=== PATIENT | male | born 1975 | race Caucasian/White ===

== ENCOUNTER 2016-11-29 16:59 | Emergency (ER) | payer BC, OTHER ==
[2016-11-29 17:06] VITALS: BP 158/97; RESP 18; TEMP 97.9
[2016-11-29] MEDS ORDERED: IPRATROPIUM-ALBUTEROL 3 ML NEB INHALATION STA (17:47)
--- NOTE | 2016-11-29 17:54 | ED ---
URI HPI - General Chief Complaint: Upper Respiratory Infection Stated Complaint: Diff breathing Time Seen by Provider: 11/29/16 17:22 Source: patient Mode of arrival: wheelchair Limitations: no limitations - History of Present Illness Initial Comments: Patient is a 32-year-old male with chief complaint of 1 month of cough and left- sided rib pain. Patient reports the pain is worse with coughing. Patient states he is a smoker. He is trying to quit. Patient denies any fever or chills. He denies any other upper respiratory symptoms including sore throat or ear pain or sinus congestion. He denies any abdominal pain or fever or chills or nausea or vomiting. Patient reports that the pain in the coughing keep some of the pain. Patient denies any previous history of pneumonia. Patient denies any recent fever, chills, shortness of breath, chest pain, back pain, abdominal pain, nausea vomiting, numbness or tingling, dysuria or hematuria, constipation or diarrhea, headaches or visual changes, or any other current symptoms - Related Data Home Medications Medication Instructions Recorded Confirmed Escitalopram Oxalate [Lexapro] 10 mg PO QAM 05/28/16 06/11/16 Atorvastatin [Lipitor] 10 mg PO DAILY 06/09/16 06/11/16 Previous Rx's Medication Instructions Recorded Aspirin 325 mg PO DAILY #30 tab 06/11/16 HYDROcodone/APAP 7.5-325MG [[place] 1 each PO Q6HR PRN #30 tab 06/11/16 7.5] Nicotine 21Mg/24Hr Patch [Habitrol] 1 each TRANSDERM DAILY #30 patch 06/11/16 Azithromycin [Zithromax Z-pack] 250 mg PO DIRECTED #6 tab 11/29/16 Promethaz-Cod 6.25-10 mg/5 ml 5 ml PO Q6HR PRN #60 ml 11/29/16 [Phenergan with Codeine] methylPREDNISolone Dose Pack 4 mg PO DIRECTED #21 package 11/29/16 [Medrol Dose Pack] Allergies Allergy/AdvReac Type Severity Reaction Status Date / Time No Known Allergies Allergy Verified 11/29/16 17:04 Review of Systems ROS Statement: Those systems with pertinent positive or pertinent negative responses have been documented in the HPI. ROS Other: All systems not noted in ROS Statement are negative. Past Medical History Past Medical History: Hyperlipidemia Additional Past Medical History / Comment(s): fx rt ankle, USING CRUTCHES History of Any Multi-Drug Resistant Organisms: None Reported Past Surgical History: Appendectomy, Tonsillectomy Additional Past Surgical History / Comment(s): 06/10/16 ORIF R ankle. Other surgical hx: carpal tunnel, mass right foot, Past Anesthesia/Blood Transfusion Reactions: Previous Problems w/ Anesthesia Additional Past Anesthesia/Blood Transfusion Reaction / Comment(s): woke up during surgery in past Past Psychological History: Depression Additional Psychological History / Comment(s): Pt resides in 2 locations. One with his girlfriend and another with his 2 children ages 10 and 12. He is normally independent. Smoking Status: Current every day smoker Past Alcohol Use History: Rare Additional Past Alcohol Use History / Comment(s): has smoked since teen, less than 1ppd Past Drug Use History: None Reported - Past Family History Father Family Medical History: No Reported History Additional Family Medical History / Comment(s): Father is healthy and is 57 yrs. old. Mother Family Medical History: No Reported History Additional Family Medical History / Comment(s): Mother is healthy and is 58 yrs old. General Exam - General Exam Comments Initial Comments: is a 40-year-old male. He does not appear to be in any acute distress. Limitations: no limitations General appearance: alert, in no apparent distress Head exam: Present: atraumatic, normocephalic, normal inspection Eye exam: Present: normal appearance, PERRL, EOMI. Absent: scleral icterus, conjunctival injection, periorbital swelling ENT exam: Present: normal exam Neck exam: Present: normal inspection. Absent: tenderness, meningismus, lymphadenopathy Respiratory exam: Present: normal lung sounds bilaterally. Absent: respiratory distress, wheezes, rales, rhonchi, stridor Cardiovascular Exam: Present: regular rate, normal rhythm, normal heart sounds. Absent: systolic murmur, diastolic murmur, rubs, gallop, clicks GI/Abdominal exam: Present: soft, normal bowel sounds. Absent: distended, tenderness, guarding, rebound, rigid Extremities exam: Present: normal inspection, full ROM, normal capillary refill. Absent: tenderness, pedal edema, joint swelling, calf tenderness Back exam: Present: normal inspection Neurological exam: Present: alert, oriented X3, CN II-XII intact Psychiatric exam: Present: normal affect, normal mood Skin exam: Present: warm, dry, intact, normal color. Absent: rash Course Vital Signs 11/29/16 11/29/16 11/29/16 17:04 17:59 18:09 Temperature 97.9 F Pulse Rate 85 80 80 Respiratory 18 Rate Blood Pressure 158/97 O2 Sat by Pulse 97 Oximetry Medical Decision Making - Medical Decision Making is a well-appearing 32-year-old male with chief complaint of cough and left rib pain with coughing for approximately one month. Patient ports of the cough will occasionally be productive. He denies any fever or chills. Chest x- ray was reviewed. Patient was given a DuoNeb treatment in the [facility]. Patient reports he does have breathing treatment machine at home. Patient was on azithromycin and Medrol Dosepak for bronchitis. Patient advised to return to the [facility] if any alarming signs or symptoms occur. I did advise patient to follow- up with primary care provider. Return parameters were discussed. Disposition Clinical Impression: Bronchitis Disposition: HOME SELF-CARE Condition: Good Instructions: Upper Respiratory Infection in Children (ED) Additional Instructions: Continue to use breathing treatments as directed. Patient instructed to follow- up with primary care provider as directed. Continue to complete antibiotic and steroid prescription. Use cough syrup as directed. Prescriptions: Azithromycin [Zithromax Z-pack] 250 mg PO DIRECTED #6 tab Promethaz-Cod 6.25-10 mg/5 ml [Phenergan with Codeine] 5 ml PO Q6HR PRN #60 ml PRN Reason: Cough methylPREDNISolone Dose Pack [Medrol Dose Pack] 4 mg PO DIRECTED #21 package Referrals: Boris Vazquez DO [Primary Care Provider] - 1-2 days Time of Disposition: 17:50
[2016-11-29 18:02] VITALS: PULSE 80
--- NOTE | 2016-11-29 18:11 | XR ---
EXAMINATION TYPE: XR chest 2V DATE OF EXAM: 11/29/2016 5:42 PM COMPARISON: Prior chest x-ray October HISTORY: Cough, tingling in hands and feet TECHNIQUE: Frontal and lateral views of the chest are obtained. FINDINGS: There is no focal air space opacity, pleural effusion, or pneumothorax seen. The cardiac silhouette size is within normal limits. The osseous structures are intact. IMPRESSION: No acute cardiopulmonary process.
== END 2016-11-29 18:20 | disposition home or self-care (01) ==
LOC: EC 16:59
DX: J40 Bronchitis, not specified as acute or chronic (principal); E78.5 Hyperlipidemia, unspecified; F17.200 Nicotine dependence, unspecified, uncomplicated; Z79.82 Long term (current) use of aspirin; Z79.899 Other long term (current) drug therapy
CPT/HCPCS: 71020; 99283

== ENCOUNTER 2018-07-18 11:01 | Day surgery (SDC) | payer BC, OTHER ==
[2018-07-17 13:17] VITALS: BMI 33.0
[~2018-07-18 11:01] MED LIST: LACTATED RINGERS 1,000 ML IV SCH; LIDOCAINE 1% 20 ML VIAL (10MG/ML) FOR IV START INTRADERMA PRN
[2018-07-18] MEDS ORDERED: LIDOCAINE 1% INJ 10MG/ML (20 ML MDV) ONE (11:56)
[2018-07-18] MEDS ORDERED: PROPOFOL 10 MG/ML 20 ML VIAL IV ONE (11:56)
[2018-07-18 11:59] VITALS: RESP 18; TEMP 97
--- NOTE | 2018-07-18 11:59 | P.GSHP ---
History of Present Illness H&P Date: 07/18/18 Chief Complaint: GI bleed Is a 42-year-old male with history of GI bleed. Patient presents today for EGD and colonoscopy. 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 Other surgical hx: benja carpal tunnel Past Anesthesia/Blood Transfusion Reactions: Previous Problems w/ Anesthesia Additional Past Anesthesia/Blood Transfusion Reaction / Comment(s): woke up during surgery in past ,claustrophobic Smoking Status: Current some day smoker - Past Family History Father Family Medical History: No Reported History Additional Family Medical History / Comment(s): Father is healthy and is 57 yrs. old. Mother Family Medical History: No Reported History Additional Family Medical History / Comment(s): Mother is healthy and is 58 yrs old. Medications and Allergies Home Medications Medication Instructions Recorded Confirmed Type Rivaroxaban [Xarelto] 20 mg PO DAILY 07/17/18 07/17/18 History Varenicline [Chantix Continuing 1 mg PO DAILY 07/17/18 07/18/18 History Pack] amLODIPine BESYLATE [Norvasc] 5 mg PO HS 07/17/18 07/18/18 History Allergies Allergy/AdvReac Type Severity Reaction Status Date / Time No Known Allergies Allergy Verified 07/18/18 11:33 Surgical - Exam - General well developed, no distress - Eyes PERRL - ENT normal pinna - Neck no masses - Respiratory normal expansion - Cardiovascular Rhythm: regular - Abdomen Abdomen: soft, non tender Assessment and Plan Assessment: Family. We'll perform EGD and colonoscopy
[2018-07-18 12:49] VITALS: BP 135/91; PULSE 62
--- NOTE | 2018-07-18 14:31 | P.OP ---
Date of Procedure: 07/18/18 Preoperative Diagnosis: GI bleed Postoperative Diagnosis: Antral gastritis Diverticulosis Procedure(s) Performed: EGD Colonoscopy Anesthesia: MAC Surgeon: Danilo Hamilton Pathology: other (Antrum) Condition: stable Disposition: PACU Description of Procedure: Patient's placed on the endoscopy table in the lateral position. He received IV sedation. The gastroscope placed oropharynx and passed in the esophagus into the stomach. Scope was then placed through the pylorus. The first and second portion of the duodenum appeared normal. Scope summer back the antrum this. Mildly inflamed. A biopsies performed. Scope was then retroflexed and the remainder some appeared normal. The GE junction was at 40 cm. The distal esophagus appeared normal. Esophagus. Normal. Scope was withdrawn. Next digital rectal exam was performed which revealed no abnormalities. The flexible colonoscope was then placed patient anus and passed throughout the entire colon. The ileocecal valve was visually. The cecum, ascending and transverse colon appeared normal. The descending; had mild diverticular changes. The scope was then brought back the rectum and this appeared normal. Scope withdrawn the patient. As no evidence of any bleeding seen.
--- NOTE | 2018-07-20 17:10 | CDI ---
Outpatient Documentation Clarification Form Date: 07/20/18 CDS/Entry Clerk Name: Linette Lambert Phone: If any questions, call Brenda Maurice Motor Transport Inspector at [phone] Patient Name: Elliot Iyer Admit Date: 07/18/18 Discharge Date: 07/18/18 ATTENTION: The [facility] Coding Staff appreciate your assistance in clarifying documentation. Please respond to the clarification below the line at the bottom and electronically sign. The [facility] Coding staff will review the response and follow-up if needed. Please note: Queries are made part of the Legal Health Record. If you have any questions, please contact the Motor Transport Inspector. Dear Dr. Danilo Hamilton, What is the source of the GI bleed? Multiple coding resources, that we are required to follow, state that the physician should identify a source and the cold working supervisor may not assume. ICD-9-CM [facility], Second 2006, Page 13: Question: In the 2004 issue of Coding Clinic, it was advised that "the combination codes describing hemorrhage should not be assigned unless the physician identifies a causal relationship." This information superseded previous advice provided in 1991. If, however, a patient presents with GI bleeding where only one possible source is found, can the cold working supervisor assume a causal relationship between the GI bleeding and the single finding (ulcer, gastritis, diverticulitis, etc.) or must the physician explicitly state that the GI bleeding is due to the single finding? Answer: The cold working supervisor should not assume a causal relationship between gastrointestinal bleeding and a single finding such as a gastric ulcer, gastritis, diverticulitis , etc. The physician must identify the source of the bleeding and link the clinical findings from the colonoscopy or upper endoscopy, since these findings may be unrelated to the bleeding. ICD-9-CM, 2004, Page: 17-18: Question: A patient presents with GI bleeding and undergoes both an EGD with biopsy and colonoscopy. Results reveal multiple findings including gastritis, duodenitis, esophagitis, diverticulosis (of colon), and colon polyp. The physician does not link the GI bleeding with these conditions nor does the physician state that the GI bleeding is not due to these conditions. What is the correct code assignment for these conditions? Answer: Query the physician to determine whether the GI bleeding was caused by any of the endoscopic findings (e.g., gastritis, duodentitis, esophagitis, diverticulosis, and/or polyp). Assign code 578.9, Hemorrhage of gastrointestinal tract, unspecified, as the principal diagnosis, if the physician does not establish a causal relationship between the gastrointestinal bleeding and the multiple findings. Codes 535.50, Unspecified gastritis and gastroduodenitis, without hemorrhage, 535.60, Duodenitis, without hemorrhage, 530.10, Esophagitis, unspecified, 562.10, Diverticulosis of colon (without mention of hemorrhage), and 211.3, Benign neoplasm of other parts of digestive system, Colon, should be assigned as additional diagnoses. The combination codes describing hemorrhage should not be assigned unless the physician identifies a causal relationship. If the documentation provides more specific information and the bleeding is linked to a specific condition, assign the appropriate combination code with bleeding. Assign code 45.16, Esophagogastroduodenoscopy [EGD] with closed biopsy, and code 45.23, Colonoscopy , for the procedures performed. This current information supersedes advice previously published in [facility], Second Quarter 1991, pages 8-9. Thank you for your kind consideration. There was no active GI bleed. The source of previous GI bleed could be gastritis or diverticulosis. I am unable to determine. MTDD
== END 2018-07-18 13:12 | disposition home or self-care (01) ==
LOC: ORWHC2ENDO 11:01
PROVIDERS: ATTEND Surgery
DX: K92.2 Gastrointestinal hemorrhage, unspecified (principal); K29.50 Unspecified chronic gastritis without bleeding; K57.30 Diverticulosis of large intestine without perforation or abscess without bleeding; I10 Essential (primary) hypertension; E78.5 Hyperlipidemia, unspecified; G47.33 Obstructive sleep apnea (adult) (pediatric); Z79.01 Long term (current) use of anticoagulants; Z79.899 Other long term (current) drug therapy; Z87.891 Personal history of nicotine dependence
CPT/HCPCS: 88305; 45378; 43239; J2001; J2704

== ENCOUNTER 2019-08-31 11:58 | Emergency (ER) | payer OTHER ==
[2019-08-31 12:04] VITALS: BP 139/92; PULSE 75; RESP 18; TEMP 98.1
--- NOTE | 2019-08-31 12:25 | ED ---
Lower Extremity Injury HPI - General Chief Complaint: Extremity Injury, Lower Stated Complaint: Leg injury-[facility] Time Seen by Provider: 08/31/19 12:06 Source: patient, RN notes reviewed Mode of arrival: ambulatory Limitations: no limitations - History of Present Illness Initial Comments: This a 43-year-old male presents emergency from chief complaint of right leg pain. 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 He states that he removed the cramps on a trailer over he states he was pushing and felt a pop in his right upper calf region. He has no pain in the mid to lower right leg. Patient states that if he tries to walk he has increased pain. He does admit he's had prior surgery on his right leg secondary to multiple fractures. Patient denies any paresthesias at this time. Patient states that he has no redness or foot swelling denies any foot pain. - Related Data Home Medications Medication Instructions Recorded Confirmed Rivaroxaban [Xarelto] 20 mg PO DAILY 07/17/18 07/17/18 Varenicline [Chantix Continuing 1 mg PO DAILY 07/17/18 07/18/18 Pack] amLODIPine BESYLATE [Norvasc] 5 mg PO HS 07/17/18 07/18/18 Allergies Allergy/AdvReac Type Severity Reaction Status Date / Time No Known Allergies Allergy Verified 08/31/19 12:04 Review of Systems ROS Statement: Those systems with pertinent positive or pertinent negative responses have been documented in the HPI. ROS Other: All systems not noted in ROS Statement are negative. 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 Other surgical hx: benja carpal tunnel Past Anesthesia/Blood Transfusion Reactions: Previous Problems w/ Anesthesia Additional Past Anesthesia/Blood Transfusion Reaction / Comment(s): woke up during surgery in past ,claustrophobic Past Psychological History: Depression Smoking Status: Current some day smoker Past Alcohol Use History: None Reported Past Drug Use History: None Reported - Past Family History Father Family Medical History: No Reported History Additional Family Medical History / Comment(s): Father is healthy and is 57 yrs. old. Mother Family Medical History: No Reported History Additional Family Medical History / Comment(s): Mother is healthy and is 58 yrs old. General Exam General appearance: alert, in no apparent distress Head exam: Present: atraumatic, normocephalic, normal inspection Eye exam: Present: normal appearance, PERRL, EOMI. Absent: scleral icterus, conjunctival injection, periorbital swelling Respiratory exam: Present: normal lung sounds bilaterally. Absent: respiratory distress, wheezes, rales, rhonchi, stridor Cardiovascular Exam: Present: regular rate, normal rhythm, normal heart sounds. Absent: systolic murmur, diastolic murmur, rubs, gallop, clicks Extremities exam: Present: other (Right calf there is moderate tenderness minimal swelling no erythema pedal pulses equal bilaterally full range of motion negative Harley's test) Course Vital Signs 08/31/19 11:59 Temperature 98.1 F Pulse Rate 75 Respiratory 18 Rate Blood Pressure 139/92 O2 Sat by Pulse 95 Oximetry Medical Decision Making - Medical Decision Making X-rays are negative for acute changes are is old hardware noted without any dislodgment. Patient has a gastrocnemius strain. Patient will be placed on crutches, follow up with [facility] patient provided pain medication. Disposition Clinical Impression: Strain of right gastrocnemius muscle Disposition: HOME SELF-CARE Condition: Stable Instructions (If sedation given, give patient instructions): Muscle Strain (ED) Additional Instructions: Please return to the Emergency Department if symptoms worsen or any other concerns. Is patient prescribed a controlled substance at d/c from ED?: No Referrals: Boris Vazquez DO [Primary Care Provider] - 1-2 days Joseph Greenberg DO [Doctor of Osteopathic Medicine] - 1-2 days Time of Disposition: 12:51
--- NOTE | 2019-08-31 12:38 | XR ---
EXAMINATION TYPE: XR tibia fibula RT , 4 VIEWS DATE OF EXAM ORDERED: 08/31/2019 HISTORY: pain. COMPARISON: Previous study dated 05/28/2016. FINDINGS: There has been a previous sideplate and screw fixation of the distal fibula. There is a mi nimal exostosis seen arising from the lateral aspect of the proximal fibular metaphysis. No acute fra cture or dislocation is seen. Incidental note is made of a small Achilles spur. IMPRESSION: 1. NO ACUTE OSSEOUS LESION. 2. EVIDENCE OF OLD TRAUMA TO THE DISTAL RIGHT FIBULA.
[2019-08-31] MEDS ORDERED: ACET/COD 300 MG/30 MG STARTER PACK 6 TAB BTL PO STA (12:51)
== END 2019-08-31 13:10 | disposition home or self-care (01) ==
LOC: EC 11:58
DX: S86.819A Strain of other muscle(s) and tendon(s) at lower leg level, unspecified leg, initial encounter (principal); E78.5 Hyperlipidemia, unspecified; I10 Essential (primary) hypertension; F17.200 Nicotine dependence, unspecified, uncomplicated; Z86.711 Personal history of pulmonary embolism; Z79.01 Long term (current) use of anticoagulants; Z79.899 Other long term (current) drug therapy; W20.8XXA Other cause of strike by thrown, projected or falling object, initial encounter; Y93.89 Activity, other specified; Y92.69 Other specified industrial and construction area as the place of occurrence of the external cause; Y99.0 Civilian activity done for income or pay
CPT/HCPCS: 99283

== ENCOUNTER → 2019-09-17 | Outpatient (CLI) | payer BC, OTHER ==
--- NOTE | 2019-09-17 14:01 | CT ---
EXAMINATION TYPE: CT chest wo con DATE OF EXAM: 09/17/2019 COMPARISON: None HISTORY: Follow up scan per patient. History of enlarged thymus. CT DLP: 440.[address] of the chest was performed with lung and mediastinal window settings submitted. The la ck of contrast limits evaluation of the vascular, mediastinal and parenchymal structures including th e upper abdomen. LUNGS: The lungs are clear and free of infiltrate. No atelectasis. No pulmonary nodule or mass is de tected. No pleural effusion. No CT evidence of interstitial lung disease. MEDIASTINUM/KAREN: There is evidence of thymic hyperplasia. No mass is identified within the mediastin um to suggest thymoma. Thoracic aorta is of normal caliber with limited evaluation given lack of cont rast. The heart is not enlarged. No evidence for mediastinal mass. No lymph nodes greater than 1c m. UPPER ABDOMEN: No significant abnormality is seen. OTHER: No significant other abnormality. IMPRESSION: 1. Thymic hyperplasia noted.
== END | disposition home or self-care (01) ==
LOC: RADCTMAIN 13:17
PROVIDERS: ATTEND Family Medicine
DX: E32.0 Persistent hyperplasia of thymus (principal)
CPT/HCPCS: 71250

== ENCOUNTER 2020-02-26 15:11 | Emergency (ER) | payer BC, OTHER ==
[2020-02-26 15:19] VITALS: RESP 18
--- NOTE | 2020-02-26 15:58 | XR ---
EXAMINATION TYPE: XR chest 2V DATE OF EXAM: 02/26/2020 COMPARISON: 11/29/2016 HISTORY: 45-year-old female with cough TECHNIQUE: PA and lateral views FINDINGS: The cardiomediastinal silhouette, aorta, and pulmonary vasculature are within normal limits. Lungs an d pleural spaces are clear. IMPRESSION: No acute cardiopulmonary process.
[2020-02-26 16:20] LABS: Appearance,Urine Clear (Clear); Bilirubin,Urine Negative (Negative); Blood,Urine Negative (Negative); Color,Urine Yellow; Glucose,Urine (UA) Negative (Negative); Ketones,Urine Negative (Negative); Leukocyte Esterase,Urine Trace (Negative); Mucus,Urine Occasional /hpf; Nitrite,Urine Negative (Negative); Protein,Urine Negative (Negative); RBC,Urine 1 /hpf (0-5); Specific Gravity,Urine 1.017 (1.001-1.035); Urobilinogen,Urine <2.0 mg/dL (<2.0)
[2020-02-26 16:29] LABS: Basophils # (A) 0.1 k/uL (0-0.2); Basophils % (A) 1 %; Eosinophils # (A) 0.2 k/uL (0-0.7); Eosinophils % (A) 2 %; HCT 50.1 % (39.0-53.0); HGB 16.7 gm/dL (13.0-17.5); Lymphocytes # (A) 2.6 k/uL (1.0-4.8); Lymphocytes % (A) 25 %; MCHC 33.3 g/dL (31.0-37.0); MCV 93.2 fL (80.0-100.0); Mean Platelet Volume 7.4; Monocytes # (A) 0.5 k/uL (0-1.0); Monocytes % (A) 5 %; Neutrophils # (A) 6.7 k/uL (1.3-7.7); Neutrophils % (A) 65 %; Platelet Count 241 k/uL (150-450); RBC 5.38 m/uL (4.30-5.90); WBC 10.3 k/uL (3.8-10.6)
[2020-02-26 16:38] LABS: ALT 16 U/L (4-49); AST 31 U/L (17-59); African American GFR (CKD) >90 (>60 ml/min/1.73 sqM); Albumin 4.6 g/dL (3.5-5.0); Alkaline Phosphatase 48 U/L (38-126); Amylase 47 U/L (30-110); Anion Gap 7 mmol/L; Blood Urea Nitrogen 10 mg/dL (9-20); Calcium 9.4 mg/dL (8.4-10.2); Carbon Dioxide 24 mmol/L (22-30); Chloride 107 mmol/L (98-107); Glucose 89 mg/dL (74-99); Non-African American GFR(CKD) >90 (>60 ml/min/1.73 sqM); Potassium 4.3 mmol/L (3.5-5.1); Sodium 138 mmol/L (137-145); Total Bilirubin 1.4 mg/dL (0.2-1.3); Total Protein 7.2 g/dL (6.3-8.2)
[2020-02-26] MEDS ORDERED: hydrALAZINE HCL 20 MG/ML 1 ML VIAL IVP STA ×2 (17:01→18:18)
[2020-02-26] MEDS ORDERED: LORazepam 2 MG/ML INJ IV STA (17:01)
--- NOTE | 2020-02-26 17:03 | ED ---
Nausea/Vomiting/Diarrhea HPI - General Chief complaint: Nausea/Vomiting/Diarrhea Stated complaint: fatigue Time Seen by Provider: 02/26/20 15:55 Source: patient Mode of arrival: wheelchair Limitations: no limitations - History of Present Illness Initial comments: 44-year-old male history of PE presenting today for chief complaint of diarrhea for 2 years, vomiting x 2 days, fatigue. Patient states that he has had diarrhea for 2 years he states he hasn't thinks he has IBS she has not been given answer after having multiple scopes. Patient states that on Monday he had vomiting he states he vomited blood he states that he has not vomited blood since Monday and the puking has almost subsided. Patient states he has no increasing diarrhea denies melena hematochezia. Denies chest pain he states he feels slightly short of breath and fatigued. Denies leg swelling, cough, fevers, sore throat, recent travel or surgeries. He states that he was concerned that the puking alkalosis sign of a blood clot and wanted to present to the emergency department this was at [facility] for initial evaluation. He states he tested negative for covid is not sure of his other results and was discharged home. Patient states he was not happy with the care an thus came in today. No new or worsening symptoms. If anything improving per patient. No chest pain/pressure. Patient not taking blood pressure medications. Upon arrival patient appears well there is no signs of acute distress. - Related Data Home Medications Medication Instructions Recorded Confirmed Rivaroxaban [Xarelto] 20 mg PO DAILY 07/17/18 07/17/18 Varenicline [Chantix Continuing 1 mg PO DAILY 07/17/18 07/18/18 Pack] amLODIPine BESYLATE [Norvasc] 5 mg PO HS 07/17/18 07/18/18 Previous Rx's Medication Instructions Recorded amLODIPine [Norvasc] 5 mg PO DAILY 7 Days #7 tab 02/26/20 Allergies Allergy/AdvReac Type Severity Reaction Status Date / Time No Known Allergies Allergy Verified 02/26/20 15:19 Review of Systems ROS Statement: Those systems with pertinent positive or pertinent negative responses have been documented in the HPI. ROS Other: All systems not noted in ROS Statement are negative. 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 Other surgical hx: benja carpal tunnel Past Anesthesia/Blood Transfusion Reactions: Previous Problems w/ Anesthesia Additional Past Anesthesia/Blood Transfusion Reaction / Comment(s): woke up during surgery in past ,claustrophobic Past Psychological History: Depression Smoking Status: Current every day smoker Past Alcohol Use History: None Reported Past Drug Use History: Marijuana - Past Family History Father Family Medical History: No Reported History Additional Family Medical History / Comment(s): Father is healthy and is 57 yrs. old. Mother Family Medical History: No Reported History Additional Family Medical History / Comment(s): Mother is healthy and is 58 yrs old. General Exam - General Exam Comments Initial Comments: General: The patient is awake and alert, in no distress, and does not appear acutely ill. Eye: Pupils are equal, round and reactive to light, extra-ocular movements are intact. No nystagmus. There is normal conjunctiva bilaterally. No signs of icterus. Ears, nose, mouth and throat: There are moist mucous membranes and no oral l esions. Neck: The neck is supple, there is no tenderness or JVD. Cardiovascular: There is a regular rate and rhythm. No murmur, rub or gallop is appreciated. Respiratory: Lungs are clear to auscultation, respirations are non-labored, breath sounds are equal. No wheezes, stridor, rales, or rhonchi. Gastrointestinal: Soft, non-distended, non-tender abdomen without masses or organomegaly noted. There is no rebound or guarding present. Musculoskeletal: Normal ROM, no tenderness. Strength 5/5. Sensation intact. Pulses equal bilaterally 2+. Neurological: A&O x 3. CN II-XII intact grossly, There are no obvious motor or sensory deficits. Coordination appears grossly intact. Speech is normal. Skin: Skin is warm and dry and no rashes or lesions are noted. Psychiatric: Cooperative, appropriate mood & affect, normal judgment. Limitations: no limitations Course Vital Signs 02/26/20 02/26/20 02/26/20 15:15 16:52 17:29 Temperature 98.7 F Pulse Rate 87 81 82 Respiratory 18 18 18 Rate Blood Pressure 148/105 149/112 141/100 O2 Sat by Pulse 99 98 99 Oximetry 02/26/20 02/26/20 18:16 18:46 Temperature 98.2 F Pulse Rate 90 76 Respiratory 18 18 Rate Blood Pressure 135/102 134/92 O2 Sat by Pulse 97 99 Oximetry Medical Decision Making - Medical Decision Making 44-year-old male presenting for diarrhea 2 years vomiting 2 days that has been improving. No vomiting the ER abdominal exam benign patient appears well laboratory studies stable EKG WNL. No chest pain slight shortness of breath and fatigue. No cough. No fevers. Outpatient: Testing negative. Chest x-ray clear. Patient dimer (-). Oxygen saturation well. No tachycardia or respiratory distress. Lungs clear. Patient BP elevated off medications. Hx of high BP. Lowered in ED. Patient prescribed outpatient medications. At this time I feel p atient is stable for discharge with PCP f/u and return parameters as discussed. Dr. Corbin agreeable to care plan and discharge. - Lab Data Result diagrams: 02/26/20 16:07 02/26/20 16:07 Lab Results 02/26/20 02/26/20 02/26/20 Range/Units 16:07 16:07 16:07 WBC 10.3 (3.8-10.6) k/uL RBC 5.38 (4.30-5.90) m/uL Hgb 16.7 (13.0-17.5) gm/dL Hct 50.1 (39.0-53.0) % MCV 93.2 (80.0-100.0) fL MCH 31.0 (25.0-35.0) pg MCHC 33.3 (31.0-37.0) g/dL RDW 13.0 (11.5-15.5) % Plt Count 241 (150-450) k/uL Neutrophils % 65 % Lymphocytes % 25 % Monocytes % 5 % Eosinophils % 2 % Basophils % 1 % Neutrophils # 6.7 (1.3-7.7) k/uL Lymphocytes # 2.6 (1.0-4.8) k/uL Monocytes # 0.5 (0-1.0) k/uL Eosinophils # 0.2 (0-0.7) k/uL Basophils # 0.1 (0-0.2) k/uL D-Dimer (<0.60) mg/L FEU Sodium 138 (137-145) mmol/L Potassium 4.3 (3.5-5.1) mmol/L Chloride 107 (98-107) mmol/L Carbon Dioxide 24 (22-30) mmol/L Anion Gap 7 mmol/L BUN 10 (9-20) mg/dL Creatinine 0.81 (0.66-1.25) mg/dL Est GFR (CKD-EPI)AfAm >90 (>60 ml/min/1.73 sqM) Est GFR (CKD-EPI)NonAf >90 (>60 ml/min/1.73 sqM) Glucose 89 (74-99) mg/dL Calcium 9.4 (8.4-10.2) mg/dL Total Bilirubin 1.4 H (0.2-1.3) mg/dL AST 31 (17-59) U/L ALT 16 (4-49) U/L Alkaline Phosphatase 48 (38-126) U/L Troponin I (0.000-0.034) ng/mL Total Protein 7.2 (6.3-8.2) g/dL Albumin 4.6 (3.5-5.0) g/dL Amylase 47 (30-110) U/L Lipase 83 (23-300) U/L Urine Color Yellow Urine Appearance Clear (Clear) Urine pH 7.0 (5.0-8.0) Ur Specific [place] 1.017 (1.001-1.035) Urine Protein Negative (Negative) Urine Glucose (UA) Negative (Negative) Urine Ketones Negative (Negative) Urine Blood Negative (Negative) Urine Nitrite Negative (Negative) Urine Bilirubin Negative (Negative) Urine Urobilinogen <2.0 (<2.0) mg/dL Ur Leukocyte Esterase Trace H (Negative) Urine RBC 1 (0-5) /hpf Urine Mucus Occasional H (None) /hpf 02/26/20 02/26/20 Range/Units 16:07 16:07 WBC (3.8-10.6) k/uL RBC (4.30-5.90) m/uL Hgb (13.0-17.5) gm/dL Hct (39.0-53.0) % MCV (80.0-100.0) fL MCH (25.0-35.0) pg MCHC (31.0-37.0) g/dL RDW (11.5-15.5) % Plt Count (150-450) k/uL Neutrophils % % Lymphocytes % % Monocytes % % Eosinophils % % Basophils % % Neutrophils # (1.3-7.7) k/uL Lymphocytes # (1.0-4.8) k/uL Monocytes # (0-1.0) k/uL Eosinophils # (0-0.7) k/uL Basophils # (0-0.2) k/uL D-Dimer 0.27 (<0.60) mg/L FEU Sodium (137-145) mmol/L Potassium (3.5-5.1) mmol/L Chloride (98-107) mmol/L Carbon Dioxide (22-30) mmol/L Anion Gap mmol/L BUN (9-20) mg/dL Creatinine (0.66-1.25) mg/dL Est GFR (CKD-EPI)AfAm (>60 ml/min/1.73 sqM) Est GFR (CKD-EPI)NonAf (>60 ml/min/1.73 sqM) Glucose (74-99) mg/dL Calcium (8.4-10.2) mg/dL Total Bilirubin (0.2-1.3) mg/dL AST (17-59) U/L ALT (4-49) U/L Alkaline Phosphatase (38-126) U/L Troponin I <0.012 (0.000-0.034) ng/mL Total Protein (6.3-8.2) g/dL Albumin (3.5-5.0) g/dL Amylase (30-110) U/L Lipase (23-300) U/L Urine Color Urine Appearance (Clear) Urine pH (5.0-8.0) Ur Specific [place] (1.001-1.035) Urine Protein (Negative) Urine Glucose (UA) (Negative) Urine Ketones (Negative) Urine Blood (Negative) Urine Nitrite (Negative) Urine Bilirubin (Negative) Urine Urobilinogen (<2.0) mg/dL Ur Leukocyte Esterase (Negative) Urine RBC (0-5) /hpf Urine Mucus (None) /hpf Disposition Clinical Impression: Fatigue, Elevated blood pressure reading, Vomiting, Loose stools, Shortness of breath Disposition: HOME SELF-CARE Condition: Good Instructions (If sedation given, give patient instructions): Acute Nausea and Vomiting (ED) Additional Instructions: Please use medication as discussed. Please follow-up with family doctor in the next 2 days. Please return to emergency room if the symptoms increase or worsen or for any other concerns. Prescriptions: amLODIPine [Norvasc] 5 mg PO DAILY 7 Days #7 tab Is patient prescribed a controlled substance at d/c from ED?: No Referrals: Boris Vazquez DO [Primary Care Provider] - 1-2 days Yoly Stahl MD [STAFF PHYSICIAN] - 1-2 days Time of Disposition: 18:51
[2020-02-26 18:47] VITALS: BP 134/92; PULSE 76; TEMP 98.2
== END 2020-02-26 19:05 | disposition home or self-care (01) ==
LOC: EC 15:11
DX: R03.0 Elevated blood-pressure reading, without diagnosis of hypertension (principal); R06.02 Shortness of breath; R19.7 Diarrhea, unspecified; R53.83 Other fatigue; R11.10 Vomiting, unspecified; F17.200 Nicotine dependence, unspecified, uncomplicated; Z79.899 Other long term (current) drug therapy; Z79.01 Long term (current) use of anticoagulants; Z86.711 Personal history of pulmonary embolism
CPT/HCPCS: 36415; 93005; 85379; 80053; 82150; 83690; 84484; 85025; 81001; 71046; 96374; 96375; 96376; 99284; J2060; J0360

== ENCOUNTER 2021-04-22 14:43 | Emergency (ER) | payer BC, OTHER ==
[2021-04-22] MEDS ORDERED: DIAZEPAM 5 MG/ML 2 ML INJ IVP STA (16:47)
[2021-04-22] MEDS ORDERED: SODIUM CHLORIDE 0.9% 1,000 ML IV ONE (16:47)
--- NOTE | 2021-04-22 17:09 | ED ---
General Adult HPI - General Chief complaint: Shortness of Breath Stated complaint: High BP, leg pain, sweating Time Seen by Provider: 04/22/21 16:24 Source: patient Mode of arrival: wheelchair Limitations: no limitations - History of Present Illness Initial comments: Is a 45-year-old male with a history of PE, IBS who presents emergent department for multiple complaints. The patient states that over the last 5 days he's been having lower extremity pain and spasming. He's been having spasming in the left side of his abdomen. He states he's been feeling short of breath and having some chest tightness. He states the chest tightness has been present for quite some time however. Patient states that all these symptoms seemed to increase after he stopped smoking marijuana about 5 days ago. Patient also states that he's been having some sweating and feeling more jittery. Patient has had multiple stressful things happen in his life including with a rate of his daughter and of his . 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 The patient does have a history of IBS and he states these had bowel blockages in the past. He states he's been having normal bowel movements however over the last week or so after starting some probiotics. The patient states he does get some pain and cramping in the bilateral calves. This seems to happen intermittently. He is worried that his potassium may be low he's been taking potassium at home. Also were that he may have a blockage somewhere in his arteries is why he came to the emergency department. - Related Data Home Medications Medication Instructions Recorded Confirmed Apple Cider Vinegar Gummies 6 tab PO DAILY 04/22/21 04/22/21 Atorvastatin Calcium [Lipitor] 10 mg PO DAILY 04/22/21 04/22/21 Cetirizine HCl [Zyrtec] 10 mg PO DAILY 04/22/21 04/22/21 Ibuprofen [Motrin Ib] 800 mg PO DAILY PRN 04/22/21 04/22/21 Magnesium Oxide 400 mg PO DAILY 04/22/21 04/22/21 Omeprazole 40 mg PO DAILY 04/22/21 04/22/21 Potassium Gluconate 198 mg PO DAILY PRN 04/22/21 04/22/21 Probiotic W/Prebiotic 1 cap PO DAILY 04/22/21 04/22/21 buPROPion HCL [Wellbutrin XL] 150 mg PO DAILY 04/22/21 04/22/21 Previous Rx's Medication Instructions Recorded amLODIPine [Norvasc] 5 mg PO DAILY 7 Days #7 tab 02/26/20 Allergies Allergy/AdvReac Type Severity Reaction Status Date / Time No Known Allergies Allergy Verified 04/22/21 18:21 Review of Systems ROS Statement: Those systems with pertinent positive or pertinent negative responses have been documented in the HPI. ROS Other: All systems not noted in ROS Statement are negative. 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 Other surgical hx: benja carpal tunnel Past Anesthesia/Blood Transfusion Reactions: Previous Problems w/ Anesthesia Additional Past Anesthesia/Blood Transfusion Reaction / Comment(s): woke up during surgery in past ,claustrophobic Past Psychological History: Depression Smoking Status: Current every day smoker Past Alcohol Use History: None Reported Past Drug Use History: Marijuana - Past Family History Father Family Medical History: No Reported History Additional Family Medical History / Comment(s): Father is healthy and is 57 yrs. old. Mother Family Medical History: No Reported History Additional Family Medical History / Comment(s): Mother is healthy and is 58 yrs old. General Exam - General Exam Comments Initial Comments: Constitutional: Awake alert patient is quite anxious appearing and somewhat diaphoretic Head: Normocephalic atraumatic Eyes: no conjunctival injection No scleral icterus EOMI Neck: No JVD Supple Heart: Regular rate rhythm normal S1-S2 no murmurs Lungs: Clear to auscultation bilaterally No wheezing No rales Abdomen: Soft nondistended mild tenderness to palpation along the left side of the abdomen Extremities: Non edematous DP pulses intact and equal Radial pulses intact and equal, no calf tenderness on examination Neuro: A&Ox3 No focal neurologic deficits Psych: Appropriate mood and affect Limitations: no limitations Course Vital Signs 04/22/21 04/22/21 04/22/21 15:50 19:03 19:44 Temperature 98.4 F 97.8 F Pulse Rate 99 71 71 Respiratory 18 20 20 Rate Blood Pressure 137/97 128/100 112/64 O2 Sat by Pulse 98 97 98 Oximetry EKG Findings - EKG Comments: EKG Findings:: EKG showing normal sinus rhythm with a rate of 78. No abnormal ST 7 changes or tumor. QTC is 396. Other intervals normal. No ectopy. Medical Decision Making - Medical Decision Making This 45-year-old male who presents emergency department for multiple complaints. The patient was evaluated and found to have intact pulses in all extremities, he had no significant tenderness to his calves or swelling. The patient vitals he appeared slightly hypertensive on arrival however otherwise stable. The patient appeared extremely anxious when he arrived in the emergency department. Patient was given 1 L of normal saline in the dose of Valium. Patient had great resolution of his symptoms. He states his cramping had resolved and as well as the tingling in his [place]. His blood pressure improved significantly. Blood work was reviewed and unremarkable. Troponin negative. EKG unremarkable. Chest x-ray and abdominal x-ray unremarkable. The patient felt improved. Advised him to follow closely with his primary doctor and possibly a neurologist in the near future for further evaluation and the patient agreed and all questions were answered. - Lab Data Result diagrams: 04/22/21 17:02 04/22/21 17:02 Lab Results 04/22/21 04/22/21 04/22/21 Range/Units 17:02 17:02 17:02 WBC 10.5 (3.8-10.6) k/uL RBC 5.79 (4.30-5.90) m/uL Hgb 18.4 H (13.0-17.5) gm/dL Hct 51.9 (39.0-53.0) % MCV 89.7 (80.0-100.0) fL MCH 31.8 (25.0-35.0) pg MCHC 35.4 (31.0-37.0) g/dL RDW 12.8 (11.5-15.5) % Plt Count 252 (150-450) k/uL MPV 7.2 Neutrophils % 67 % Lymphocytes % 23 % Monocytes % 7 % Eosinophils % 2 % Basophils % 1 % Neutrophils # 7.0 (1.3-7.7) k/uL Lymphocytes # 2.4 (1.0-4.8) k/uL Monocytes # 0.7 (0-1.0) k/uL Eosinophils # 0.2 (0-0.7) k/uL Basophils # 0.1 (0-0.2) k/uL PT 10.7 (9.0-12.0) sec INR 1.0 (<1.2) APTT 26.5 (22.0-30.0) sec D-Dimer 0.22 (<0.60) mg/L FEU Sodium 142 (137-145) mmol/L Potassium 4.3 (3.5-5.1) mmol/L Chloride 105 (98-107) mmol/L Carbon Dioxide 24 (22-30) mmol/L Anion Gap 13 mmol/L BUN 14 (9-20) mg/dL Creatinine 1.07 (0.66-1.25) mg/dL Est GFR (CKD-EPI)AfAm >90 (>60 ml/min/1.73 sqM) Est GFR (CKD-EPI)NonAf 85 (>60 ml/min/1.73 sqM) Glucose 101 H (74-99) mg/dL Calcium 10.5 H (8.4-10.2) mg/dL Magnesium 2.2 (1.6-2.3) mg/dL Total Bilirubin 1.8 H (0.2-1.3) mg/dL AST 39 (17-59) U/L ALT 32 (4-49) U/L Alkaline Phosphatase 78 (38-126) U/L Troponin I (0.000-0.034) ng/mL Total Protein 8.5 H (6.3-8.2) g/dL Albumin 5.6 H (3.5-5.0) g/dL Lipase 110 (23-300) U/L Urine Color Urine Appearance (Clear) Urine pH (5.0-8.0) Ur Specific [place] (1.001-1.035) Urine Protein (Negative) Urine Glucose (UA) (Negative) Urine Ketones (Negative) Urine Blood (Negative) Urine Nitrite (Negative) Urine Bilirubin (Negative) Urine Urobilinogen (<2.0) mg/dL Ur Leukocyte Esterase (Negative) Urine RBC (0-5) /hpf Urine WBC (0-5) /hpf Hyaline Casts (0-2) /lpf Urine Mucus (None) /hpf Urine Opiates Screen (NotDetected) Ur Oxycodone Screen (NotDetected) Urine Methadone Screen (NotDetected) Ur Propoxyphene Screen (NotDetected) Ur Barbiturates Screen (NotDetected) U Tricyclic Antidepress (NotDetected) Ur Phencyclidine Scrn (NotDetected) Ur Amphetamines Screen (NotDetected) U Methamphetamines Scrn (NotDetected) U Benzodiazepines Scrn (NotDetected) Urine Cocaine Screen (NotDetected) U Marijuana (THC) Screen (NotDetected) 04/22/21 04/22/21 Range/Units 17:02 19:44 WBC (3.8-10.6) k/uL RBC (4.30-5.90) m/uL Hgb (13.0-17.5) gm/dL Hct (39.0-53.0) % MCV (80.0-100.0) fL MCH (25.0-35.0) pg MCHC (31.0-37.0) g/dL RDW (11.5-15.5) % Plt Count (150-450) k/uL MPV Neutrophils % % Lymphocytes % % Monocytes % % Eosinophils % % Basophils % % Neutrophils # (1.3-7.7) k/uL Lymphocytes # (1.0-4.8) k/uL Monocytes # (0-1.0) k/uL Eosinophils # (0-0.7) k/uL Basophils # (0-0.2) k/uL PT (9.0-12.0) sec INR (<1.2) APTT (22.0-30.0) sec D-Dimer (<0.60) mg/L FEU Sodium (137-145) mmol/L Potassium (3.5-5.1) mmol/L Chloride (98-107) mmol/L Carbon Dioxide (22-30) mmol/L Anion Gap mmol/L BUN (9-20) mg/dL Creatinine (0.66-1.25) mg/dL Est GFR (CKD-EPI)AfAm (>60 ml/min/1.73 sqM) Est GFR (CKD-EPI)NonAf (>60 ml/min/1.73 sqM) Glucose (74-99) mg/dL Calcium (8.4-10.2) mg/dL Magnesium (1.6-2.3) mg/dL Total Bilirubin (0.2-1.3) mg/dL AST (17-59) U/L ALT (4-49) U/L Alkaline Phosphatase (38-126) U/L Troponin I <0.012 (0.000-0.034) ng/mL Total Protein (6.3-8.2) g/dL Albumin (3.5-5.0) g/dL Lipase (23-300) U/L Urine Color Yellow Urine Appearance Clear (Clear) Urine pH 5.5 (5.0-8.0) Ur Specific [place] 1.028 (1.001-1.035) Urine Protein 1+ H (Negative) Urine Glucose (UA) Negative (Negative) Urine Ketones 3+ H (Negative) Urine Blood Negative (Negative) Urine Nitrite Negative (Negative) Urine Bilirubin Negative (Negative) Urine Urobilinogen 2.0 (<2.0) mg/dL Ur Leukocyte Esterase Negative (Negative) Urine RBC 3 (0-5) /hpf Urine WBC 2 (0-5) /hpf Hyaline Casts 1 (0-2) /lpf Urine Mucus Moderate H (None) /hpf Urine Opiates Screen Not Detected (NotDetected) Ur Oxycodone Screen Not Detected (NotDetected) Urine Methadone Screen Not Detected (NotDetected) Ur Propoxyphene Screen Not Detected (NotDetected) Ur Barbiturates Screen Not Detected (NotDetected) U Tricyclic Antidepress Not Detected (NotDetected) Ur Phencyclidine Scrn Not Detected (NotDetected) Ur Amphetamines Screen Not Detected (NotDetected) U Methamphetamines Scrn Not Detected (NotDetected) U Benzodiazepines Scrn Not Detected (NotDetected) Urine Cocaine Screen Not Detected (NotDetected) U Marijuana (THC) Screen Detected H (NotDetected) Disposition Clinical Impression: Paresthesias, Dyspnea Disposition: HOME SELF-CARE Condition: Stable Instructions (If sedation given, give patient instructions): Paresthesia (ED) Is patient prescribed a controlled substance at d/c from ED?: No Referrals: None,Stated [Primary Care Provider] - 1-2 days
[2021-04-22 17:20] LABS: Basophils # (A) 0.1 k/uL (0-0.2); Basophils % (A) 1 %; Eosinophils # (A) 0.2 k/uL (0-0.7); Eosinophils % (A) 2 %; HCT 51.9 % (39.0-53.0); HGB 18.4 gm/dL (13.0-17.5); Lymphocytes # (A) 2.4 k/uL (1.0-4.8); Lymphocytes % (A) 23 %; MCH 31.8 pg (25.0-35.0); MCHC 35.4 g/dL (31.0-37.0); MCV 89.7 fL (80.0-100.0); Mean Platelet Volume 7.2; Monocytes # (A) 0.7 k/uL (0-1.0); Monocytes % (A) 7 %; Neutrophils % (A) 67 %; Platelet Count 252 k/uL (150-450); RBC 5.79 m/uL (4.30-5.90); RDW 12.8 % (11.5-15.5); WBC 10.5 k/uL (3.8-10.6)
[2021-04-22 17:29] LABS: ALT 32 U/L (4-49); AST 39 U/L (17-59); African American GFR (CKD) >90 (>60 ml/min/1.73 sqM); Albumin 5.6 g/dL (3.5-5.0); Alkaline Phosphatase 78 U/L (38-126); Anion Gap 13 mmol/L; Blood Urea Nitrogen 14 mg/dL (9-20); Calcium 10.5 mg/dL (8.4-10.2); Carbon Dioxide 24 mmol/L (22-30); Chloride 105 mmol/L (98-107); Glucose 101 mg/dL (74-99); Lipase 110 U/L (23-300); Magnesium 2.2 mg/dL (1.6-2.3); Non-African American GFR(CKD) 85 (>60 ml/min/1.73 sqM); Potassium 4.3 mmol/L (3.5-5.1); Sodium 142 mmol/L (137-145); Total Bilirubin 1.8 mg/dL (0.2-1.3); Total Protein 8.5 g/dL (6.3-8.2)
[2021-04-22 17:59] LABS: D-Dimer 0.22 mg/L FEU (<0.60); Partial Thromboplastin Time 26.5 sec (22.0-30.0); Prothrombin Time 10.7 sec (9.0-12.0)
--- NOTE | 2021-04-22 19:00 | XR ---
EXAMINATION TYPE: Acute abdominal radiographic series 4 views DATE OF EXAM: 04/22/2021 COMPARISON: NONE HISTORY: Cramping, high blood pressure, dyspnea TECHNIQUE: Upright chest and upright abdomen and 2 supine abdominal pelvic views FINDINGS: Chest: The lungs are clear and well-expanded. Pleural spaces are negative. Cardiomediastinal silhouet te and bones and soft tissues are unremarkable. Abdomen and pelvis: There is no evidence of pneumoperitoneum. The bowel gas pattern is unremarkable as there is air throughout nondilated small and large bowel. No sizeable air fluid levels. No mass effects are seen. No unusual calcifications. IMPRESSION: No acute radiographic process.
[2021-04-22 19:04] VITALS: PULSE 71; RESP 20; TEMP 97.8
[2021-04-22 19:44] VITALS: BP 112/64
[2021-04-22 20:16] LABS: Appearance,Urine Clear (Clear); Bilirubin,Urine Negative (Negative); Blood,Urine Negative (Negative); Color,Urine Yellow; Glucose,Urine (UA) Negative (Negative); Hyaline Casts,Urine 1 /lpf (0-2); Ketones,Urine 3+ (Negative); Leukocyte Esterase,Urine Negative (Negative); Mucus,Urine Moderate /hpf; Nitrite,Urine Negative (Negative); PH, Urine 5.5 (5.0-8.0); Protein,Urine 1+ (Negative); RBC,Urine 3 /hpf (0-5); Specific Gravity,Urine 1.028 (1.001-1.035); WBC,Urine 2 /hpf (0-5)
[2021-04-22 20:21] LABS: Amphetamine Screen,Urine Not Detected (NotDetected); Barbiturate Screen,Urine Not Detected (NotDetected); Benzodiazepines Screen,Urine Not Detected (NotDetected); Cocaine Screen,Urine Not Detected (NotDetected); Methadone Screen, Urine Not Detected (NotDetected); Opiate Screen,Urine Not Detected (NotDetected); Oxycodone Screen, Urine Not Detected (NotDetected); Phencyclidine Screen,Urine Not Detected (NotDetected); Tricyclic Antidepressant,Urine Not Detected (NotDetected); Urn Cannabinoid Scrn Detected (NotDetected)
== END 2021-04-22 21:23 | disposition home or self-care (01) ==
LOC: EC 14:43
DX: R20.2 Paresthesia of skin (principal); R06.02 Shortness of breath; M79.662 Pain in left lower leg; M79.661 Pain in right lower leg; R61 Generalized hyperhidrosis; R07.89 Other chest pain; I10 Essential (primary) hypertension; E78.5 Hyperlipidemia, unspecified; J44.9 Chronic obstructive pulmonary disease, unspecified; F32.9 Major depressive disorder, single episode, unspecified; F17.200 Nicotine dependence, unspecified, uncomplicated; Z79.1 Long term (current) use of non-steroidal anti-inflammatories (NSAID); Z79.899 Other long term (current) drug therapy; Z86.711 Personal history of pulmonary embolism; F12.90 Cannabis use, unspecified, uncomplicated
CPT/HCPCS: 36415; 93005; 85379; 80053; 83690; 83735; 84484; 85025; 85610; 85730; 81001; 80306; 74022; 99285; 96374; J3360

== ENCOUNTER 2021-04-25 16:23 | Emergency (ER) | payer OTHER ==
[2021-04-25] MEDS ORDERED: MORPHINE SULFATE 4 MG/ML SYRINGE IV STA (17:12)
[2021-04-25] MEDS ORDERED: ONDANSETRON 4 MG/2 ML VIAL IVP STA (17:12)
[2021-04-25] MEDS ORDERED: SODIUM CHLORIDE 0.9% 1,000 ML IV STA (17:12)
[2021-04-25] MEDS ORDERED: diphenhydrAMINE 50 MG/ML 1 ML VIAL IVP STA (17:12)
[2021-04-25 17:53] LABS: Basophils % (A) 0 %; Eosinophils # (A) 0.1 k/uL (0-0.7); Eosinophils % (A) 2 %; HCT 50.8 % (39.0-53.0); Lymphocytes # (A) 1.4 k/uL (1.0-4.8); Lymphocytes % (A) 16 %; MCH 31.6 pg (25.0-35.0); MCHC 35.4 g/dL (31.0-37.0); MCV 89.4 fL (80.0-100.0); Mean Platelet Volume 7.6; Monocytes # (A) 0.6 k/uL (0-1.0); Monocytes % (A) 6 %; Neutrophils # (A) 6.6 k/uL (1.3-7.7); Neutrophils % (A) 75 %; Platelet Count 235 k/uL (150-450); RBC 5.68 m/uL (4.30-5.90); RDW 12.7 % (11.5-15.5); WBC 8.8 k/uL (3.8-10.6)
[2021-04-25 17:58] LABS: ALT 25 U/L (4-49); AST 32 U/L (17-59); African American GFR (CKD) >90 (>60 ml/min/1.73 sqM); Alkaline Phosphatase 63 U/L (38-126); Amylase 63 U/L (30-110); Anion Gap 10 mmol/L; Blood Urea Nitrogen 10 mg/dL (9-20); Calcium 9.9 mg/dL (8.4-10.2); Carbon Dioxide 25 mmol/L (22-30); Chloride 107 mmol/L (98-107); Glucose 113 mg/dL (74-99); Lipase 146 U/L (23-300); Non-African American GFR(CKD) >90 (>60 ml/min/1.73 sqM); Potassium 4.1 mmol/L (3.5-5.1); Sodium 142 mmol/L (137-145); Total Protein 7.5 g/dL (6.3-8.2)
--- NOTE | 2021-04-25 18:37 | CT ---
EXAMINATION TYPE: CT abdomen pelvis w con DATE OF EXAM: 04/25/2021 COMPARISON: None HISTORY: Generalized pain with discolored stool and difficulty urinating. CT DLP: 1255.2 mGycm Automated exposure control for dose reduction was used. CONTRAST: Performed with IV Contrast, patient injected with 100 mL of Isovue 300. Lung bases are clear. There is no pleural effusion. Heart size is normal. There is no pericardial eff usion. Liver spleen stomach pancreas gallbladder appear intact. The bile ducts are not dilated. There is no adrenal mass. Kidneys show satisfactory contrast opacification. There is no hydronephrosi s. Bladder distends smoothly. There is no inguinal hernia. There is no free fluid in the pelvis. There is no evidence of a pelvic mass. There is no mesenteric edema. There is no ascites or free air. Delayed images show normal renal excretion. Appendix is not seen. There is no sign of thickened appe ndix. The lumbar vertebra have normal alignment. There is no compression fracture. Posterior elements are intact. The bony pelvis is intact. The hip joints are intact. IMPRESSION: Negative CT scan of the abdomen pelvis.
--- NOTE | 2021-04-25 18:54 | ED ---
Recheck HPI - General Chief Complaint: Recheck/Abnormal Lab/Rx Stated Complaint: Abd Pain/High HR Time Seen by Provider: 04/25/21 16:49 Source: patient, RN notes reviewed Mode of arrival: ambulatory Limitations: no limitations - History of Present Illness Initial Comments: 45-year-old male presents emergency department with several issues. He did note that he was seen several days ago for some left lower abdominal pain and cramping. He notes that he did not get the answers she wanted so he is return today for reevaluation. He notes that she wants to be tested for a pheochromocytoma due to a family history of his dad having it. Patient did not appear to be in any distress or pain while sitting up in bed during exam and interview. He did note that sitting with his knees towards his chest helped reduce some of his abdominal pain. Patient was a well-appearing well-hydrated 45-year-old male. He denied any chest pain shortness of breath headache nausea vomiting diarrhea constipation or fatigue chills. - Related Data Home Medications Medication Instructions Recorded Confirmed Apple Cider Vinegar Gummies 6 tab PO DAILY 04/22/21 04/25/21 Atorvastatin Calcium [Lipitor] 10 mg PO DAILY 04/22/21 04/25/21 Cetirizine HCl [Zyrtec] 10 mg PO DAILY 04/22/21 04/25/21 Ibuprofen [Motrin Ib] 800 mg PO DAILY PRN 04/22/21 04/25/21 Magnesium Oxide 400 mg PO DAILY 04/22/21 04/25/21 Omeprazole 40 mg PO DAILY 04/22/21 04/25/21 Potassium Gluconate 198 mg PO DAILY PRN 04/22/21 04/25/21 Probiotic W/Prebiotic 1 cap PO DAILY 04/22/21 04/25/21 buPROPion HCL [Wellbutrin XL] 150 mg PO DAILY 04/22/21 04/25/21 Previous Rx's Medication Instructions Recorded amLODIPine [Norvasc] 5 mg PO DAILY 7 Days #7 tab 02/26/20 Allergies Allergy/AdvReac Type Severity Reaction Status Date / Time No Known Allergies Allergy Verified 04/25/21 19:00 Review of Systems ROS Statement: Those systems with pertinent positive or pertinent negative responses have been documented in the HPI. ROS Other: All systems not noted in ROS Statement are negative. 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 Other surgical hx: benja carpal tunnel Past Anesthesia/Blood Transfusion Reactions: Previous Problems w/ Anesthesia Additional Past Anesthesia/Blood Transfusion Reaction / Comment(s): woke up during surgery in past ,claustrophobic Past Psychological History: Depression Smoking Status: Current every day smoker Past Alcohol Use History: None Reported Past Drug Use History: Marijuana - Past Family History Father Family Medical History: No Reported History Additional Family Medical History / Comment(s): Father is healthy and is 57 yrs. old. Mother Family Medical History: No Reported History Additional Family Medical History / Comment(s): Mother is healthy and is 58 yrs old. General Exam Limitations: no limitations General appearance: alert, in no apparent distress Head exam: Present: atraumatic, normocephalic, normal inspection Eye exam: Present: normal appearance, PERRL, EOMI. Absent: scleral icterus, conjunctival injection, periorbital swelling Neck exam: Present: normal inspection Respiratory exam: Present: normal lung sounds bilaterally. Absent: respiratory distress, wheezes, rales, rhonchi, stridor Cardiovascular Exam: Present: regular rate, normal rhythm, normal heart sounds. Absent: systolic murmur, diastolic murmur, rubs, gallop, clicks GI/Abdominal exam: Present: soft, normal bowel sounds. Absent: distended, tenderness, guarding, rebound, rigid Extremities exam: Present: normal inspection, full ROM, normal capillary refill. Absent: tenderness, pedal edema, joint swelling, calf tenderness Neurological exam: Present: alert, oriented X3 Psychiatric exam: Present: normal affect, normal mood Skin exam: Present: warm, dry, intact, normal color. Absent: rash Course Vital Signs 04/25/21 04/25/21 16:27 18:59 Temperature 98.4 F Pulse Rate 72 77 Respiratory 16 18 Rate Blood Pressure 172/106 145/92 O2 Sat by Pulse 98 95 Oximetry Medical Decision Making - Medical Decision Making Patient is a 45-year-old male with multiple complaints presented emergency department his main one being left lower quadrant pain. Labs, CT of the abdomen and pelvis, 1 L normal saline, 4 mg Zofran, 4 mg morphine, 50 mg of Benadryl ordered. Labs unremarkable from previous studies Urine shows moderate amounts of red blood cells.. CT of the abdomen and pelvis negative for any acute process. Case discussed with Dr. Bartholomew, patient discharge home with follow-up to [facility] - Lab Data Result diagrams: 04/25/21 17:28 04/25/21 17: Lab Results 04/25/21 04/25/21 04/25/21 Range/Units 17:28 17: 17: WBC 8.8 (3.8-10.6) k/uL RBC 5.68 (4.30-5.90) m/uL Hgb 18.0 H (13.0-17.5) gm/dL Hct 50.8 (39.0-53.0) % MCV 89.4 (80.0-100.0) fL MCH 31.6 (25.0-35.0) pg MCHC 35.4 (31.0-37.0) g/dL RDW 12.7 (11.5-15.5) % Plt Count 235 (150-450) k/uL MPV 7.6 Neutrophils % 75 % Lymphocytes % 16 % Monocytes % 6 % Eosinophils % 2 % Basophils % 0 % Neutrophils # 6.6 (1.3-7.7) k/uL Lymphocytes # 1.4 (1.0-4.8) k/uL Monocytes # 0.6 (0-1.0) k/uL Eosinophils # 0.1 (0-0.7) k/uL Basophils # 0.0 (0-0.2) k/uL Sodium 142 (137-145) mmol/L Potassium 4.1 (3.5-5.1) mmol/L Chloride 107 (98-107) mmol/L Carbon Dioxide 25 (22-30) mmol/L Anion Gap 10 mmol/L BUN 10 (9-20) mg/dL Creatinine 0.98 (0.66-1.25) mg/dL Est GFR (CKD-EPI)AfAm >90 (>60 ml/min/1.73 sqM) Est GFR (CKD-EPI)NonAf >90 (>60 ml/min/1.73 sqM) Glucose 113 H (74-99) mg/dL Plasma Lactic Acid [place] (0.7-2.0) mmol/L Calcium 9.9 (8.4-10.2) mg/dL Total Bilirubin 1.0 (0.2-1.3) mg/dL AST 32 (17-59) U/L ALT 25 (4-49) U/L Alkaline Phosphatase 63 (38-126) U/L Total Protein 7.5 (6.3-8.2) g/dL Albumin 5.0 (3.5-5.0) g/dL Amylase 63 (30-110) U/L Lipase 146 (23-300) U/L Urine Color Yellow Urine Appearance Clear (Clear) Urine pH 6.0 (5.0-8.0) Ur Specific [place] 1.023 (1.001-1.035) Urine Protein Negative (Negative) Urine Glucose (UA) Negative (Negative) Urine Ketones Negative (Negative) Urine Blood Moderate H (Negative) Urine Nitrite Negative (Negative) Urine Bilirubin Negative (Negative) Urine Urobilinogen <2.0 (<2.0) mg/dL Ur Leukocyte Esterase Negative (Negative) Urine RBC 29 H (0-5) /hpf Urine WBC 1 (0-5) /hpf Ur Squamous Epith Cells <1 (0-4) /hpf Urine Mucus Rare H (None) /hpf 04/25/ Range/Units 17:28 WBC (3.8-10.6) k/uL RBC (4.30-5.90) m/uL Hgb (13.0-17.5) gm/dL Hct (39.0-53.0) % MCV (80.0-100.0) fL MCH (25.0-35.0) pg MCHC (31.0-37.0) g/dL RDW (11.5-15.5) % Plt Count (150-450) k/uL MPV Neutrophils % % Lymphocytes % % Monocytes % % Eosinophils % % Basophils % % Neutrophils # (1.3-7.7) k/uL Lymphocytes # (1.0-4.8) k/uL Monocytes # (0-1.0) k/uL Eosinophils # (0-0.7) k/uL Basophils # (0-0.2) k/uL Sodium (137-145) mmol/L Potassium (3.5-5.1) mmol/L Chloride (98-107) mmol/L Carbon Dioxide (22-30) mmol/L Anion Gap mmol/L BUN (9-20) mg/dL Creatinine (0.66-1.25) mg/dL Est GFR (CKD-EPI)AfAm (>60 ml/min/1.73 sqM) Est GFR (CKD-EPI)NonAf (>60 ml/min/1.73 sqM) Glucose (74-99) mg/dL Plasma Lactic Acid [place] 1.4 (0.7-2.0) mmol/L Calcium (8.4-10.2) mg/dL Total Bilirubin (0.2-1.3) mg/dL AST (17-59) U/L ALT (4-49) U/L Alkaline Phosphatase (38-126) U/L Total Protein (6.3-8.2) g/dL Albumin (3.5-5.0) g/dL Amylase (30-110) U/L Lipase (23-300) U/L Urine Color Urine Appearance (Clear) Urine pH (5.0-8.0) Ur Specific [place] (1.001-1.035) Urine Protein (Negative) Urine Glucose (UA) (Negative) Urine Ketones (Negative) Urine Blood (Negative) Urine Nitrite (Negative) Urine Bilirubin (Negative) Urine Urobilinogen (<2.0) mg/dL Ur Leukocyte Esterase (Negative) Urine RBC (0-5) /hpf Urine WBC (0-5) /hpf Ur Squamous Epith Cells (0-4) /hpf Urine Mucus (None) /hpf - Radiology Data Radiology results: report reviewed, image reviewed CT of the abdomen and pelvis: Negative computed tomography scan of the abdomen and pelvis. Disposition Clinical Impression: Abdominal pain Disposition: HOME SELF-CARE Condition: Stable Instructions (If sedation given, give patient instructions): Abdominal Pain (ED) Additional Instructions: Please return to the Emergency Department if symptoms worsen or any other concerns. Follow-up primary care in the next several days. Follow-up with a specialist needed. Continue take at home medications as prescribed. Is patient prescribed a controlled substance at d/c from ED?: No Referrals: Rian Yang MD [Primary Care Provider] - 1-2 days Time of Disposition: 19:56
[2021-04-25 19:02] VITALS: RESP 18
[2021-04-25 19:28] LABS: Appearance,Urine Clear (Clear); Bilirubin,Urine Negative (Negative); Blood,Urine Moderate (Negative); Color,Urine Yellow; Glucose,Urine (UA) Negative (Negative); Ketones,Urine Negative (Negative); Leukocyte Esterase,Urine Negative (Negative); Mucus,Urine Rare /hpf; Nitrite,Urine Negative (Negative); Protein,Urine Negative (Negative); RBC,Urine 29 /hpf (0-5); Specific Gravity,Urine 1.023 (1.001-1.035); Squamous Epithelial Cell,Urine <1 /hpf (0-4); Urobilinogen,Urine <2.0 mg/dL (<2.0); WBC,Urine 1 /hpf (0-5)
[2021-04-25 20:21] VITALS: BP 137/99; PULSE 83; TEMP 98.7
== END 2021-04-25 20:22 | disposition home or self-care (01) ==
LOC: SUPCPDRO 16:23 → EC 16:23
DX: R10.32 Left lower quadrant pain (principal); I10 Essential (primary) hypertension; J44.9 Chronic obstructive pulmonary disease, unspecified; E78.5 Hyperlipidemia, unspecified; F32.9 Major depressive disorder, single episode, unspecified; F17.200 Nicotine dependence, unspecified, uncomplicated; Z79.1 Long term (current) use of non-steroidal anti-inflammatories (NSAID); Z86.711 Personal history of pulmonary embolism; F12.90 Cannabis use, unspecified, uncomplicated
CPT/HCPCS: 36415; 80053; 82150; 83605; 83690; 85025; 81001; 74177; 99284; 96374; 96375 ×2; J2270; J1200; J2405; Q9967

== ENCOUNTER → 2021-05-11 | Outpatient (CLI) | payer OTHER ==
[2021-05-11 16:55] LABS: Basophils # (A) 0.07 X 10*3/uL (0.00-0.10); Basophils % (A) 0.8 %; Eosinophils # (A) 0.22 X 10*3/uL (0.04-0.35); Eosinophils % (A) 2.6 %; HCT 48.1 % (39.6-50.0); HGB 16.2 g/dL (13.0-17.0); Lymphocytes # (A) 3.33 X 10*3/uL (0.90-5.00); MCH 30.5 pg (27.0-32.0); MCHC 33.7 g/dL (32.0-37.0); MCV 90.4 fL (80.0-97.0); Mean Platelet Volume 10.9 fL (9.5-12.2); Monocytes # (A) 0.77 X 10*3/uL (0.20-1.00); Monocytes % (A) 9.2 %; Neutrophils # (A) 3.92 X 10*3/uL (1.80-7.70); Neutrophils % (A) 47.2 %; Platelet Count 253 X 10*3/uL (140-440); RBC 5.32 X 10*6/uL (4.40-5.60); RDW 12.6 % (11.5-14.5); WBC 8.33 X 10*3/uL (4.50-10.00)
[2021-05-11 20:43] LABS: African American GFR (CKD) 106.4 (60.0-200.0); Albumin 4.6 g/dL (3.80-4.90); Albumin/Globulin Ratio 2.3 (1.60-3.17); Anion Gap 7.8 mmol/L (4.00-12.00); Calcium 9.3 mg/dL (8.7-10.3); Carbon Dioxide 24.2 mmol/L (21.6-31.8); Chol/HDL Ratio 3.36; LDL Cholesterol,Calculated 79.6 mg/dL (0.0-131.0); Non-African American GFR(CKD) 91.8 (60.0-200.0); Potassium 4.2 mmol/L (3.5-5.5); Total Bilirubin 0.9 mg/dL (0.3-1.2); Total Protein 6.6 g/dL (6.2-8.2); VLDL Calculation 19.4 mg/dL (5.00-40.00)
== END | disposition home or self-care (01) ==
LOC: LABWHC1 10:03
PROVIDERS: ATTEND Family Medicine
DX: K90.0 Celiac disease (principal); I10 Essential (primary) hypertension
CPT/HCPCS: 36415; 80053; 80061; 83516; 84443; 85025

== ENCOUNTER → 2025-03-06 | Outpatient (CLI) | payer OTHER ==
[2025-03-07 02:17] LABS: % Iron Saturation 29.19 (15.00-50.00); ALT 16 U/L (10-49); AST 24 U/L (14-35); Albumin 4.7 g/dL (3.8-4.9); Albumin/Globulin Ratio 1.88 Ratio (1.60-3.17); Alkaline Phosphatase 74 U/L (41-126); BUN/Creat Ratio 9.67 Ratio (12.00-20.00); Blood Urea Nitrogen 11.6 mg/dL (9.0-27.0); Carbon Dioxide 23.3 mmol/L (21.6-31.8); Chloride 102 mmol/L (96-109); Chol/HDL Ratio 7.63 Ratio; Creatine Kinase 130 U/L (35-257); Globulin 2.5 g/dL (1.6-3.3); Glucose 102 mg/dL (70-110); Iron 101 UG/DL (65-175); LDL Cholesterol,Calculated 252.3 mg/dL (0.0-131.0); Potassium 4.1 mmol/L (3.5-5.5); Rheumatoid Factor, Qnt <15 IU/mL (0-15); Sodium 140 mmol/L (135-145); Total Bilirubin 1.1 mg/dL (0.3-1.2); Total Iron Binding Capacity 346 UG/DL (228-460); Total Protein 7.2 g/dL (6.2-8.2); Uric Acid 8.6 mg/dL (3.7-8.7)
[2025-03-07 02:39] LABS: Basophils # (A) 0.06 X 10*3/uL (0.00-0.10); Basophils % (A) 0.8 %; Eosinophils # (A) 0.17 X 10*3/uL (0.04-0.35); Eosinophils % (A) 2.3 %; HCT 48.9 % (39.6-50.0); Lymphocytes # (A) 2.63 X 10*3/uL (0.90-5.00); Lymphocytes % (A) 35.4 %; MCH 30.1 pg (27.0-32.0); MCHC 32.7 g/dL (32.0-37.0); MCV 91.9 FL (80.0-97.0); Mean Platelet Volume 11.1 FL (9.5-12.2); Monocytes % (A) 10.8 %; NRBC Per 100 WBC 0 X 10*3/uL (0.00-0.01); Neutrophils # (A) 3.73 X 10*3/uL (1.80-7.70); Neutrophils % (A) 50.2 %; Platelet Count 298 X 10*3/uL (140-440); RBC 5.32 X 10*6/uL (4.40-5.60); RDW 13.3 % (11.5-14.5); WBC 7.43 X 10*3/uL (4.50-10.00)
[2025-03-07 04:13] LABS: Erythrocyte Sedimentation Rate 23 mm/Hr (0-15)
[2025-03-07 04:15] LABS: Cyclic Citrull Pep IgG Unit <1.5 U/mL (<=3.9); Cyclic Citrullinated Pep IgG Negative; Gliadin AB IgA, Deaminated Negative (Negative); Gliadin AB IgA, Unit 0.8 U/mL; Gliadin AB IgG, Deaminated Negative (Negative); Gliadin AB IgG, Unit <0.4 U/mL
== END | disposition home or self-care (01) ==
LOC: LABWHC1 15:07
PROVIDERS: ATTEND Internal Medicine
DX: E78.2 Mixed hyperlipidemia (principal); K90.0 Celiac disease; M1A.27 Drug-induced chronic gout, ankle and foot; K90.9 Intestinal malabsorption, unspecified; N40.0 Benign prostatic hyperplasia without lower urinary tract symptoms; G47.33 Obstructive sleep apnea (adult) (pediatric); Z84.89 Family history of other specified conditions
CPT/HCPCS: 36415; 80053; 80061; 82306; 82550; 82607; 82728; 82746; 83036; 83516; 83540; 83550; 83835; 84153; 84443; 84550; 85025; 85652; 86038; 86140; 86200; 86431

== ENCOUNTER → 2025-03-19 | Outpatient (CLI) | payer OTHER ==
--- NOTE | 2025-03-19 13:47 | CT ---
EXAMINATION TYPE: CT chest w con DATE OF EXAM: 03/19/2025 COMPARISON: Chest CT CLINICAL INDICATION: Male, 49 years old with history of T75.89XA SPECIFIED EFFECTS EXTERNAL SEPTEMBER 17, 2019 CAUSES, chemical exposure TECHNIQUE: CT scan of the thorax is performed following with IV Contrast, patient injected with 100 ml mL of . CT DLP: 503.5 mGycm. Automated Exposure Control for Dose Reduction was Utilized. FINDINGS: LUNGS: The lungs are grossly clear, there is no concerning parenchymal mass or nodule identified. No focal consolidation. There is no pleural effusion or pneumothorax seen. The tracheobronchial tree i s patent. HEART: Size within normal limits. No significant coronary artery calcifications. MEDIASTINUM: There are no greater than 1 cm mediastinal lymph nodes. Borderline enlarged right hilar lymph node image 23. No pericardial effusion is seen. Some residual thymus tissue is redemonstrated but less prominent versus prior CT. OTHER: No additional significant abnormality is seen. IMPRESSION: No suspicious acute or chronic pulmonary parenchymal process. [facility], , 03/19/2025 1:45 PM
== END | disposition home or self-care (01) ==
LOC: RADCTMAIN 10:11
PROVIDERS: ATTEND Internal Medicine
DX: T75.89XA Other specified effects of external causes, initial encounter (principal); Z77.098 Contact with and (suspected) exposure to other hazardous, chiefly nonmedicinal, chemicals
CPT/HCPCS: 71260; Q9967

== ENCOUNTER → 2025-05-13 | Outpatient (CLI) | payer OTHER ==
[2025-05-13 21:01] LABS: Gliadin AB IgA, Deaminated Negative (Negative); Gliadin AB IgA, Unit 0.6 U/mL; Gliadin AB IgG, Deaminated Negative (Negative); Gliadin AB IgG, Unit <0.4 U/mL
== END | disposition home or self-care (01) ==
LOC: LABWHC1 14:14
PROVIDERS: ATTEND Internal Medicine Gastroenterology
DX: R76.8 Other specified abnormal immunological findings in serum (principal)
CPT/HCPCS: 36415; 83516